=== PATIENT | female | born 1995 | race Caucasian/White ===

== ENCOUNTER 2019-12-24 08:38 | Emergency (ER) | payer SELFPAY ==
[~2019-12-24] VITALS: Ht 170.2 cm; Wt 73.4 kg
[2019-12-24 09:08] LABS: BASO % 0 % (0-3); EOS # 0.1 x10^3/uL (0.0-0.7); EOS % 1 % (0-3); HEMATOCRIT 34.8 % (36.0-47.0); HEMOGLOBIN 11.7 g/dL (12.0-15.5); LYMPH # 1.4 x10^3/uL (1.0-4.8); LYMPH % 14 % (24-48); MEAN CORPUSCULAR HEMOGLOBIN 29 pg (25-35); MEAN CORPUSCULAR HGB CONC 34 g/dL (31-37); MEAN CORPUSCULAR VOLUME 87 fL (79-100); MONO % 9 % (0-9); NEUT # 7.7 x10^3/uL (1.8-7.7); NEUT % 75 % (31-73); PLATELET COUNT 261 x10^3/uL (140-400); RED BLOOD COUNT 3.99 x10^6/uL (3.50-5.40); RED CELL DISTRIBUTION WIDTH 14.2 % (11.5-14.5); WHITE BLOOD COUNT 10.2 x10^3/uL (4.0-11.0)
--- NOTE | 2019-12-24 09:19 | PHYS DOC ---
Past Medical History Past Medical History: No Pertinent History Additional Past Medical Histor: MISSCARRIAGE, C SECTION Past Surgical History: Smoking Status: Current Every Day Smoker Additional Information: VAPS Alcohol Use: None General Adult EDM: Chief Complaint: VAGINAL BLEEDING HPI: HPI: Patient is a 24-year-old female G4, P1 with 2 previous miscarriages who states her blood type is O+ presents with lower abdominal cramping and some bleeding. She states this starts this morning. She states this feels very similar to previous miscarriage. She denies any fever chills or sweats. She said no dysuria or gross hematuria. [] Review of Systems: Review of Systems: Constitutional: Denies fever or chills. [] Eyes: Denies change in visual acuity. [] HENT: Denies nasal congestion or sore throat. [] Respiratory: Denies cough or shortness of breath. [] Cardiovascular: Denies chest pain or edema. [] GI: Denies abdominal pain, nausea, vomiting, bloody stools or diarrhea. [] : Denies dysuria, per HPI [] Musculoskeletal: Denies back pain or joint pain. [] Integument: Denies rash. [] Neurologic: Denies headache, focal weakness or sensory changes. [] Endocrine: Denies polyuria or polydipsia. [] Lymphatic: Denies swollen glands. [] Psychiatric: Reports anxiety. [] Heart Score: Risk Factors: Risk Factors: DM, Current or recent (<one month) smoker, HTN, HLP, family history of CAD, obesity. Risk Scores: Score 0 - 3: 2.5% MACE over next 6 weeks - Discharge Home Score 4 - 6: 20.3% MACE over next 6 weeks - Admit for Clinical Observation Score 7 - 10: 72.7% MACE over next 6 weeks - Early Invasive Strategies Allergies: Allergies: Allergies Coded Allergies Type Severity Reaction Last Updated Verified No Known Drug Allergies 12/24/19 No Physical Exam: PE: Constitutional: Well developed, well nourished, no acute distress, non-toxic appearance. [] HENT: Normocephalic, atraumatic, bilateral external ears normal, oropharynx moist, no oral exudates, nose normal. [] Eyes: PERRLA, EOMI, conjunctiva normal, no discharge. [] Neck: Normal range of motion, no tenderness, supple, no stridor. [] Cardiovascular:Heart rate regular rhythm, no murmur [] Lungs & Thorax: Bilateral breath sounds clear to auscultation [] Abdomen: Bowel sounds normal, soft, no tenderness, no masses, no pulsatile masses. [] Skin: Warm, dry, no erythema, no rash. [] Back: No tenderness, no CVA tenderness. [] Extremities: No tenderness, no cyanosis, no clubbing, ROM intact, no edema. [] Neurologic: Alert and oriented X 3, normal motor function, normal sensory function, no focal deficits noted. [] Psychologic: Anxious [] Current Patient Data: Labs: Laboratory Tests Test 12/24/19 08:57 12/24/19 09:00 POC Urine HCG, Qualitative Hcg positive (Negative) White Blood Count 10.2 x10^3/uL (4.0-11.0) Red Blood Count 3.99 x10^6/uL (3.50-5.40) Hemoglobin 11.7 g/dL (12.0-15.5) L Hematocrit 34.8 % (36.0-47.0) L Mean Corpuscular Volume 87 fL (79-100) Mean Corpuscular Hemoglobin 29 pg (25-35) Mean Corpuscular Hemoglobin Concent 34 g/dL (31-37) Red Cell Distribution Width 14.2 % (11.5-14.5) Platelet Count 261 x10^3/uL (140-400) Neutrophils (%) (Auto) 75 % (31-73) H Lymphocytes (%) (Auto) 14 % (24-48) L Monocytes (%) (Auto) 9 % (0-9) Eosinophils (%) (Auto) 1 % (0-3) Basophils (%) (Auto) 0 % (0-3) Neutrophils # (Auto) 7.7 x10^3/uL (1.8-7.7) Lymphocytes # (Auto) 1.4 x10^3/uL (1.0-4.8) Monocytes # (Auto) 1.0 x10^3/uL (0.0-1.1) Eosinophils # (Auto) 0.1 x10^3/uL (0.0-0.7) Basophils # (Auto) 0.0 x10^3/uL (0.0-0.2) Laboratory Tests 12/24/19 09:00 Vital Signs: Vital Signs Date Time Temp Pulse Resp B/P (MAP) Pulse Ox O2 Delivery O2 Flow Rate FiO2 12/24/19 08:57 98.7 97 16 119/71 (87) 98 Room Air 98.7 EKG: EKG: [] Radiology/Procedures: Radiology/Procedures: [] Impression: PROCEDURE: OB <14 WKS W/TV OB ultrasound less than 14 weeks HISTORY: and vaginal bleeding Sonographic examination of the was performed by transabdominal and endovaginal technique. Multiple static images were obtained OB ultrasound less than 14 weeks transabdominal: There is no gestational sac identified. The ovaries are not seen by transabdominal technique. Transvaginal OB ultrasound: The endometrium of the uterus appears thickened measuring 1.4 centers in thickness. The ovaries appear normal normal blood flow. The right ovary measures 4.4 x 1.5 (7 cm. Left ovary measures 2.8 x 2.4 x 1.8 cm. IMPRESSION: No sonographic evidence of . This could be a miscarriage or early . Recommend correlation with serial quantitative beta-hCG. If the continues beyond 6 weeks a repeat ultrasound is recommended. Course & Med Decision Making: Course & Med Decision Making Pertinent Labs and Imaging studies reviewed. (See chart for details) [] Hannah Disclaimer: Hannah Disclaimer: This electronic medical record was generated, in whole or in part, using a voice recognition dictation system. Departure Departure Impression: Primary Impression: Spontaneous Disposition: 01 HOME, SELF-CARE Condition: STABLE Referrals: NO PCP (PCP) Patient Instructions: Miscarriage Additional Instructions: follow with your [facility] this week for recheck. Return to the emergency department with any new or concerning symptoms IWONA HICKEY DO Dec 24, 2019 09:19
[2019-12-24 09:21] LABS: CALCIUM 8.7 mg/dL (8.5-10.1); CREATININE 0.7 mg/dL (0.6-1.0); GFR 101.1; POTASSIUM 3.7 mmol/L (3.5-5.1)
[2019-12-24 09:27] LABS: ALBUMIN 3.5 g/dL (3.4-5.0); ALBUMIN/GLOBULIN RATIO 1.1 (1.0-1.7); TOTAL BILIRUBIN 0.3 mg/dL (0.2-1.0); TOTAL PROTEIN 6.8 g/dL (6.4-8.2)
[2019-12-24] MEDS ORDERED: HYDROcodone/APAP 5/325MG 1 TAB TABLET PO ONE (09:45)
--- NOTE | 2019-12-24 09:56 | RAD ---
OB ultrasound less than 14 weeks HISTORY: and vaginal bleeding Sonographic examination of the was performed by transabdominal and endovaginal technique. Multiple static images were obtained OB ultrasound less than 14 weeks transabdominal: There is no gestational sac identified. The ovaries are not seen by transabdominal technique. Transvaginal OB ultrasound: The endometrium of the uterus appears thickened measuring 1.4 centers in thickness. The ovaries appear normal normal blood flow. The right ovary measures 4.4 x 1.5 (7 cm. Left ovary measures 2.8 x 2.4 x 1.8 cm. IMPRESSION: No sonographic evidence of . This could be a miscarriage or early . Recommend correlation with serial quantitative beta-hCG. If the continues beyond 6 weeks a repeat ultrasound is recommended. Electronically signed by: Bello Fitzpatrick III, MD (12/24/2019 9:52 AM) [id number]
[2019-12-24 09:57] VITALS: BP 114/69
== END 2019-12-24 10:13 | disposition home or self-care (01) ==
LOC: ER 08:38
DX: O03.9 Complete or unspecified spontaneous abortion without complication (principal); R10.30 Lower abdominal pain, unspecified; F41.8 Other specified anxiety disorders; F17.200 Nicotine dependence, unspecified, uncomplicated; Z98.890 Other specified postprocedural states
CPT/HCPCS: 36415; 76801; 76817; 80053; 81025; 84702; 85025; 86900; 86901; 99285